=== PATIENT | male | born 1940 | race Caucasian/White ===

== ENCOUNTER 2017-09-06 09:53 | Outpatient (CLI) | payer MEDICARE, OTHER ==
--- NOTE | ~2017-09-06 | OP ---
PATIENT NAME: SUGAR EDOUARD MEDICAL RECORD: [id number] :38 LOCATION:D.CAT ADMISSION DATE: SURGEON: BETH MAI MD DATE OF OPERATION: 09/06/2017 PROCEDURES: 1. PTCA stent to LAD. 2. Intravascular ultrasound of the LAD. 3. Left heart catheterization. 4. Selective coronary angiography. 5. Left ventriculogram. 6. DC cardioversion. INDICATION: Angina, coronary artery disease, atrial fibrillation. DESCRIPTION OF PROCEDURE: After informed consent was obtained and after detailed explanation of risks, benefits as well as alternative therapies, the patient elected to proceed with angiogram and angioplasty. The right radial area was prepped and draped in normal sterile fashion. The right radial artery was cannulated via modified Seldinger technique with placement of a 6-Latvian sheath. All catheters exchanged through this sheath. FINDINGS: Left ventriculogram was performed in standard 30-degree FERRERA view, reveals global hypokinesis throughout all segments. Overall ejection fraction in the 30% range. SELECTIVE CORONARY ANGIOGRAPHY: 1. Left main has no significant angiographic disease. 2. Left anterior descending has greater than 70% stenosis throughout the entire proximal vessel confirmed by intravascular ultrasound. 3. Left circumflex has moderate irregularities, but no flow-limiting stenosis. Previously placed stent is widely patent with no significant restenosis. No disease elsewise throughout the left circumflex or its branches. 4. The right coronary artery has at least 70% stenosis throughout the mid vessel. PTCA STENT OF THE LAD: The stent used is a 3.0 x 30 mm Integrity. Result was 0% residual stenosis. OVERALL IMPRESSION: Successful percutaneous transluminal coronary angioplasty stent of the left anterior descending going from greater than 75% initial stenosis to 0% residual. PLAN: PTCA stent of the RCA in the near future. IV conscious sedation was performed per anesthesia, he received 1 shock at 275 joules restoring sinus rhythm. OVERALL IMPRESSION: Successful DC cardioversion from atrial fibrillation to sinus rhythm. TRANSINT:[id number] Voice Confirmation ID: [id number] DOCUMENT ID: [id number] OPERATIVE REPORT [id number] SUGAR EDOUARD BETH WONG MD at 1153 CC: [id number] DICTATION DATE: 09/06/17 1246 AUTOMOBILE UPHOLSTERER APPRENTICE: 09/06/17 1258 DEP CLI 09/06/17 [place] [id number] [place] [address]
--- NOTE | ~2017-09-06 | HEMODYNAMI ---
PATIENT:SUGAR EDOUARD MEDICAL RECORD: [id number] : 38 LOCATION:[facility]IZETH ADMISSION DATE: 09/06/17 Generatedon:09/06/201712:42 Patient name: SUGAR EDOUARD Patient #: [id number] SSN: D OB: 1940 Date of study: 09/06/2017 Page: Of Hemodynamic Procedure Report Patient Data Patient Demographics Procedure consent was obtained First Name: SUGAR Gender: Male Last Name: SILKE : 1940 Middle Initial: E Age: 77 year(s) Patient #: [id number] Race: Additional ID: [id number] Contact details Address: [address] [place] [address] State: [place] City: [place] Zip code: [address] Past Medical History Allergies: No known allergies Admission Admission Data Admission Date: 09/06/2017 Admission Time: 9:53 Procedure Procedure Types Cath Procedure Diagnostic Procedure LHC LHC w/Coronaries FFR/IVUS Intra-Coronary IVUS Initial Cardioversion PCI Procedure Coronary Stent Coronary Stent Initial Procedure Description Procedure Date Procedure Date: 09/06/2017 Procedure Start Time: 12:22 Procedure End Time: 12:40 Procedure Staff Name Function Saurabh Pa MD Performing Physician Jenelle Parkinson RT Monitor Shannan Paniagua RT Scrub Colleen Osborn RN Nurse Kelton Bautista MD Additional personnel Procedure Data Cath Procedure Fluoroscopy Diagnostic fluoroscopy Total fluoroscopy Time: 2.9 time: 2.9 min min Diagnostic fluoroscopy Total fluoroscopy dose: 838 dose: 838 mGy mGy Contrast Material Contrast Material Type Amount (ml) Isovue 300 70 Entry Location Entry Primary Successful Side Size Upsize Upsize Entry Closure Mahmood ccessful Closure Location (Fr) 1 (Fr) 2 (Fr) Remarks Device Remarks Radial Right 6 Fr Mechanical artery Short Compression Estimated blood loss: 10 ml Diagnostic catheters Device Type Used For End Catheter Placement DIAGNOSTIC [place] 110cm 5 LV Angiography Fr catheter ([id number]) DIAGNOSTIC [place] 110cm 5 Left Coronary Fr catheter ([id number]) Angiography DIAGNOSTIC [place] 110cm 5 Right Coronary Fr catheter ([id number]) Angiography Procedure Complications No complications Procedure Medications Medication Administration Route Dosage Oxygen NC 2 l/min Lidocaine 2% added to field 20 Heparin Flush Bag added to field 2 bags (1000units/500ml NS) 0.9% NaCl I.V. 100 ml/hr Versed I.V. 1 mg Fentanyl I.V. 50 mcg Heparin Bolus I.V. 4000 units Integrilin (Bolus I.V. 8.5 ml 2mg/ml) Versed I.V. 1 mg Fentanyl I.V. 50 mcg Plavix P.O. 600 mg Hemodynamics Rest Heart Rate: 53 (bpm) Snapshots Pre Cath Intra NCS Post Cath Vital Signs Time Heart Resp SPO2 etCO2 NIBP (mmHg) Rhythm Pain Sedation Rate (ipm) (%) (mmHg) Status Level (bpm) 12:14:42 54 18 97 0 164/105(154) A-Flutter 0 (11) 10(A) , No pain 12:19:49 70 16 98 27.5 167/97(128) A-Flutter 0 (11) 10(A) , No pain 12:24:14 63 18 96 20 151/94(127) A-Flutter 0 (11) 9(A) , No pain 12:28:32 62 17 94 8.1 106/67(99) A-Flutter 0 (11) 9(A) , No pain 12:32:29 48 20 92 36.4 110/78(102) SB 0 (11) 9(A) , No pain 12:36:39 47 16 94 8.1 107/66(83) SB 0 (11) 9(A) , No pain 12:40:47 54 17 94 0 102/66(80) SB 0 (11) 10(A) , No pain Medications Time Medication Route Dose Verified Delivered Reason Notes Effectiveness by by 12:18:07 Oxygen NC 2 Saurabh Macias used for l/min Thierno Osborn RN procedure 12:18:14 Lidocaine 2% added 20ml Saurabh Wiley for local to vial Thierno Pa MD anesthetic field 12:18:19 Heparin Flush added 2 Saurabh Wiley used for Bag to bags Thierno Pa MD procedure (1000units/500ml field NS) 12:18:27 0.9% NaCl I.V. 100 Saurabh Macias Per physician ml/hr Thierno Osborn RN 12:22:51 Versed I.V. 1 mg Saurabh Macias for sedation Thierno Osborn RN 12:22:56 Fentanyl I.V. 50 Saurabh Macias for sedation mcg Thierno Osborn RN 12:26:02 Fentanyl I.V. 50 Saurabh Macias for sedation mcg Thierno Osborn RN 12:26:59 Versed I.V. 1 mg Saurabh Macias for sedation Thierno Osborn RN 12:29:22 Heparin Bolus I.V. 4000 Saurabh Macias for verifi ed units Thierno Osborn RN anticoagulation with dr pa 12:33:18 Integrilin I.V. 8.5 Saurabh Macias for wasted (Bolus 2mg/ml) ml Thierno Osborn RN anticoagulation 1.5 ml of vial 12:41:55 Plavix P.O. 600 Saurabh Macias for mg Thierno Osborn RN antiplatelet therapy Procedure Log Time Note 11:56:26 Colleen Osborn RN sent for patient. Start room use. 11:56:26 Time tracking: Regular hours 11:56:30 Plan of Care:Hemodynamics will remain stable., Cardiac rhythm will remain stable., Comfort level will be maintained., Respiratory function will remain adequate., Patient/ family verbilizes understanding of procedure., Procedure tolerated without complication., Recovers from procedure without complications.. 11:58:03 Quick combo pads placed on patients chest and back. 12:06:33 Patient received from Pre/Post Procedure Room to CCL 2 Alert and oriented. Tansferred to table in Supine position. 12:06:34 Warm blankets applied, and eduardo hugger turned on for patient comfort. 12:06:35 Correct patient and procedure confirmed by team. 12:06:37 Signed procedure consent form obtained from patient. 12:06:45 ECG and BP/O2 sat monitors applied to patient. 12:06:46 Full Disclosure recording started 12:13:36 Vital chart was started 12:17:27 Baseline sample Acquired. 12:17:31 Rhythm: atrial flutter 12:17:41 H&P Date Dictated: 08/31/2017 Within 30 days and on chart., H&P Addendum completed by physician on day of procedure. (MUST COMPLETE FOR ALL OUTPATIENTS). 12:17:42 Pre-procedure instructions explained to patient. 12:17:43 Pre-op teaching completed and patient verbalized understanding. 12:17:44 Family in waiting room. 12:17:46 Patient NPO since Midnight. 12:17:52 Patient allergic to No known allergies 12:17:54 Is the patient allergic to Iodine/contrast media? No. 12:18:00 Is patient on blood thinner?Yes 12:18:07 Oxygen 2 l/min NC was administered by Colleen Osborn RN; used for procedure; 12:18:14 Lidocaine 2% 20ml vial added to field was administered by Saurabh Pa MD; for local anesthetic; 12:18:16 Eliquis last dose 09-05-17 AM 12:18:19 Heparin Flush Bag (1000units/500ml NS) 2 bags added to field was administered by Saurabh Pa MD; used for procedure; 12:18:19 Patient diabetic? No. 12:18:23 Previous problem with sedation/anesthesia? No ? 12:18:24 Snore? Yes 12:18:27 0.9% NaCl 100 ml/hr I.V. was administered by Colleen Osborn RN; Per physician; 12:18:29 Sleep apnea? Yes 12:18:30 Deviated septum? No 12:18:31 Opens mouth fully? Yes 12:18:31 Sticks out tongue? Yes 12:18:35 Airway obstruction? Yes COPD 12:18:38 Dentures? No ? 12:18:41 Pre procedure: right dorsailis pedis pulse 2+ Normal; easily identifiable; not easily obliterated 12:18:43 Modified [facility] test Ulnar < 7 seconds 12:18:44 Patient pain scale 0/10 ?. 12:18:49 IV patent on arrival in left hand with 0.9% NaCl at [facility]. 12:18:54 Lab results completed and on chart. 12:18:58 Right Radial area was prepped with chlora-prep and draped in sterile fashion 12:18:59 Alarms reviewed by R. N. 12:18:59 Sharps counted by scrub and verified by R.N. 12:19:02 Final Timeout: patient, procedure, and site verified with staff and physician. All members of the team are in agreement. 12:19:05 Right Radial site verified by team. 12:19:07 Physical assessment completed. ASA score P 2 - A patient with mild systemic disease as per Saurabh Pa MD. 12:19:10 Sedation plan: IV Moderate Sedation Medication:Versed, Fentanyl 12:19:59 Quick Combo opened to sterile field. 12:21:50 Use device set Radial Dx or PCI 12:21:56 ACIST Syringe (77419) opened to sterile field. 12:21:56 Medline Cath Pack ([id number]) opened to sterile field. 12:21:57 Bag Decanter (2002S) opened to sterile field. 12:21:57 SHEATH 6FR Slender ([id number]) opened to sterile field. 12:21:58 DIAGNOSTIC WIRE .035 260cm J wire (539507) opened to sterile field. 12:21:59 ACIST Hand Control (85457) opened to sterile field. 12:21:59 ACIST Manifold (53417) opened to sterile field. 12:22:00 Tegaderm 4 x 4 (1626W) opened to sterile field. 12:22:01 MBrace Wrist Support ([id number]) opened to sterile field. 12:22:07 Procedure started. 12:22:11 Zero performed for pressure channel P1 12:22:43 Local anesthetic to right radial artery with Lidocaine 2% by Saurabh Pa MD.INITIAL ACCESS ONLY 12:22:51 Versed 1 mg I.V. was administered by Colleen Osborn RN; for sedation; 12::56 Fentanyl 50 mcg I.V. was administered by Colleen Osborn RN; for sedation; 12:23:22 A 6 Fr Short sheath was inserted into the Right Radial artery 12::58 A DIAGNOSTIC [place] 110cm 5 Fr catheter (367669) was advanced over the wire and used for LV Angiography. 12:24:59 LV gram done using FERRERA 12:25:20 Injector settings: Ml/sec: 5, Volume: 15, 12:25:32 EF : 30 % 12:25:41 A DIAGNOSTIC [place] 110cm 5 Fr catheter ([id number]) was advanced over the wire and used for Left Coronary Angiography. 12:26:02 Fentanyl 50 mcg I.V. was administered by Colleen Osborn RN; for sedation; 12::59 Versed 1 mg I.V. was administered by Colleen Osborn RN; for sedation; 12:27:16 A DIAGNOSTIC [place] 110cm 5 Fr catheter (224419) was advanced over the wire and used for Right Coronary Angiography. 12::17 Catheter removed. 12:: Proceding to Cardioversion 12::36 Kelton Bautista MD present and monitoring patient for TIVA. 12::44 Sedation plan: TIVA Medication:Propofol 12::20 Use device set THIERNO PCI 12::34 INFLATOR Merit BasixCompak (GN9966) opened to sterile field. 12::18 Defibrillator synced and charged to 275 Joules. 12::20 Shock delivered. 12:: Heparin Bolus 4000 units I.V. was administered by Colleen Osborn RN; for anticoagulation; verified with dr pa 12:: Patient cardioverted to sinus bradycardia. 12::41 Proceding with IVUS 12:30:07 6 Fr XBLAD 3.5 guide catheter was inserted over the wire 12:30:10 GUIDE 6FR XBLAD 3.5 catheter ([id number]) opened to sterile field. 12:30:32 CHOICE PT Extra Support 182cm wire ([id number]) opened to sterile field. 12:31:01 CHOICE PT ES wire advanced. 12:31:09 IVUS catheter advanced over wire. 12:31:15 IVUS pass to LAD lesion performed. 12:32:34 IVUS catheter removed over wire. 12:33:18 Integrilin (Bolus 2mg/ml) 8.5 ml I.V. was administered by Colleen Osborn RN; for anticoagulation; wasted 1.5 ml of vial 12:33:56 Inflation Number: 1 A INTEGRITY RX 3.0 x 30 stent ([id number]) was prepped and advanced across the Mid LAD. The stent was deployed at 17 VICTOR M for 0:04 (min:sec). 12:34:12 Stent catheter was removed intact over wire. 12:34:13 Wire removed. 12:34:17 Guide catheter removed. 12:34:26 Sheath removed intact; hemostasis achieved with Mechanical Compression to the Right Radial artery. 12::28 Procedure ended.(Physican Out) :34:36 Fluoroscopy time 02.90 minutes. 12:35:33 Fluoroscopy dose: 838 mGy 12:35:33 Flurop Dose total: 838 12:35:37 Contrast amount:Isovue 300 70ml. 12:35:38 Sharps counted by scrub and verified by R.N. 12:35:40 TR band inflated with 10cc of air. 12:35:41 Insertion/operative site no bleeding no hematoma. 12:35:50 Post right radial artery:stable, clean and dry 12:35:51 Post Procedure Pulses reassessed and unchanged 12:35:53 Post-procedure physical assessment completed. ASA score P 2 - A patient with mild systemic disease as per Saurabh aP MD. 12:35:55 Post procedure rhythm: unchanged. 12:35:58 Estimated blood loss: 10 ml 12:35:59 Post procedure instruction explained to patient.Patient verbalizes understanding. 12:35:59 Patient needs reinforcement of post procedure teaching. 12:36:13 Procedure type changed to Cath procedure, Diagnostic procedure, LHC, LHC w/Coronaries, FFR/IVUS, Intra-Coronary IVUS Initial, Cardioversion, PCI procedure, Coronary Stent, Coronary Stent Initial 12:36:44 Procedure Complication : No complications 12:36:46 See physician's report for complete and final results. 12:36:56 TR BAND Standard ([id number]) opened to sterile field. 12:39:46 [place] Kake Eagleye IVUS Catheter (73584F) opened to sterile field. 12:40:10 Procedure and supply charges have been captured, reviewed, submitted and are correct. 12:40:11 Vital chart was stopped 12:40:24 Report given to Pre/Post Procedure Room. 12:40:28 Patient transfered to Pre/Post Procedure Room with Stretcher. 12:40:39 Procedure ended. 12:40:39 Full Disclosure recording stopped 12:40:42 End room use (Document Last) 12:41:55 Plavix 600 mg P.O. was administered by Colleen Osborn RN; for antiplatelet therapy; Intervention Summary Intervention Notes Time ActionType Lesion and Equipment Action# Pressure Duration Attributes Used 12:33:56 Place stent Mid LAD INTEGRITY RX 1 17 00:04 3.0 x 30 stent ([id number]) Device Usage Item Name Manufacture Quantity Catalog Number Hospital Part Current Mini mal Lot# / Charge Number Stock Stock Serial# Code Quick Lantern Pharmao [facility] Systems 1 [id number] 018795 254805 901043 5 ACIST Acist 1 80942 554922 654305 350073 20 Syringe Medical (99093) Systems Inc Medline Cath Cardinal 1 [id number] 287325 48013 297328 5 Pack Health ([id number]) Bag Decanter Microtek 1 2001S 679936 49169 355602 5 (2001S) Medical Inc. SHEATH 6FR Terumo 1 [id number] 457766 401271 201823 40 Slender ([id number]) DIAGNOSTIC St Jian 1 419590 748730 854306 136916 30 WIRE .035 260cm J wire (625387) ACIST Hand Acist 1 13269 015051 392186 861088 5 Control Medical (40934) Systems Inc ACIST Acist 1 39188 026385 205127 203431 5 Manifold Medical (54647) Systems Inc Tegaderm 4 x 3M 1 1626W 733977 814399 188240 5 4 (1626W) MBrace Wrist Advanced 1 140-0250-00 241565 79102 616868 5 Support Vascular ([id number]) Dynamics DIAGNOSTIC Terumo 1 40-5013 337844 099162 924367 5 [place] 110cm 5 Fr catheter (991213) INFLATOR Wedge Buster 1 [id number] 837640 000052 237842 15 Wedge Buster Medical BasixCompak (HK1416) GUIDE 6FR Cardinal 1 [id number] 853579 439191 351030 10 XBLAD 3.5 Health catheter (55967693) CHOICE PT [facility] 1 [id number] 241298 844704 567133 5 Extra Scientific Support 182cm wire ([id number]) INTEGRITY RX Medtronic 1 [id number] 684286 572585 280860 5 [id number] 3.0 x 30 stent ([id number]) TR BAND Terumo 1 [id number] 787928 993744 228062 40 Standard ([id number]) [place] 1 [id number] 600839 941805 448675 8 Kake Eagleye IVUS Catheter (71368D) Signature Audit [place] Stage Time Signature Unsigned Intra-Procedure 09/06/2017 Jenelle 12:42:17 PM Counts RT(R) Signatures Monitor : Jenelle Signature : Counts RT Date : Time : [address] [place] [address]
[~2017-09-06 09:53] MED LIST: BYSTOLIC5 MG PO; COREG25 MG PO; ELIQUIS5 MG PO; LIPITOR40 MG PO; LISINOPRIL5 MG PO; PACERONE200 MG PO; PLAVIX75 MG PO; ZESTRIL20 MG PO
[2017-09-06] MEDS ORDERED: CARDURA4 MG PO (10:10)
[2017-09-06] MEDS ORDERED: HYDROCHLOROTH12.5 M1 PO (10:11)
[2017-09-06] MEDS ORDERED: TOPROL XL100 MG PO (10:12)
[2017-09-06 10:23] VITALS: BP 145/80; BMI 30.1
[2017-09-06 10:34] LABS: HEMATOCRIT 43.8 % (42.0-54.0); HEMOGLOBIN 15.1 g/dL (13.5-17.5); MCH 33.9 pg (26.0-34.0); MCHC 34.5 g/dL (31.0-37.0); MCV 98.4 fL (80.0-100.0); MEAN PLATELET VOLUME 10.6 fL (7.4-10.4); NEUTROPHILS 63.9 % (40-80); PLATELET COUNT 157 10x3/uL (130-400); RBC 4.45 10x6/uL (4.20-6.10); RDW 12.6 % (11.5-14.5); WBC 6.8 10x3/uL (4.8-10.8)
[2017-09-06 10:39] LABS: ANION GAP 10.2 mmol/L (8-16); CARBON DIOXIDE 30.5 mmol/L (21.0-32.0); CREATININE - SERUM 1.2 mg/dL (0.6-1.3); INR 1.43 (0.85-1.17); POTASSIUM - SERUM 3.7 mmol/L (3.5-5.1)
[2017-09-06] MEDS ORDERED: PLAVIX75 MG PO (12:55)
== END 2017-09-06 17:00 | disposition home or self-care (01) ==
LOC: D.CATH 09:53
PROVIDERS: Internal Medicine Interventional Cardiology
DX: I25.119 Atherosclerotic heart disease of native coronary artery with unspecified angina pectoris (principal); I48.91 Unspecified atrial fibrillation; I34.0 Nonrheumatic mitral (valve) insufficiency; I10 Essential (primary) hypertension; E78.5 Hyperlipidemia, unspecified; Z01.812 Encounter for preprocedural laboratory examination

== ENCOUNTER 2017-09-12 08:05 | Outpatient (CLI) | payer MEDICARE, OTHER ==
--- NOTE | ~2017-09-12 | OP ---
PATIENT NAME: SUGAR EDOUARD MEDICAL RECORD: [id number] :38 LOCATION:D.CAT ADMISSION DATE: SURGEON: BETH MAI MD DATE OF OPERATION: 09/12/2017 PROCEDURES: 1. PTCA stent RCA. 2. Intravascular ultrasound. 3. Selective coronary angiography. INDICATION: Angina and coronary artery disease. PROCEDURE IN DETAIL: After informed consent was obtained and after detailed explanation of risks, benefits as well as alternative therapies, the patient elected to proceed with angiogram and angioplasty. The right radial area was prepped and draped in normal sterile fashion. The right radial artery was cannulated via modified Seldinger technique with placement of 6-Estonian sheath. All catheters exchanged through this sheath. FINDINGS: The right coronary artery has greater than 80% stenosis proximally confirmed by intravascular ultrasound. This was addressed with a 3.0 x 26 mm Integrity. Result was 0% residual stenosis. OVERALL IMPRESSION: Successful percutaneous transluminal coronary angioplasty stent of the right coronary artery going from greater than 80% initial stenosis to 0% residual stenosis. TRANSINT:[id number] Voice Confirmation ID: [id number] DOCUMENT ID: [id number] BETH MAI MD at 1153 CC: [id number] DICTATION DATE: 09/12/17 1046 STENOTYPE MACHINE OPERATOR: 09/12/17 1155 [facility] CLI 09/12/[address] [address]
--- NOTE | ~2017-09-12 | HEMODYNAMI ---
PATIENT:SUGAR EDOUARD MEDICAL RECORD: [id number] : 38 LOCATION:[facility] ADMISSION DATE: 09/12/17 Generatedon:09/12/201710:49 Patient name: SUGAR EDOUARD Patient #: [id number] SSN: [id number] OB: 1940 Date of study: 09/12/2017 Page: Of Hemodynamic Procedure Report Patient Data Patient Demographics Procedure consent was obtained First Name: SUGAR Gender: Male Last Name: SILKE : 1940 Middle Initial: E Age: 77 year(s) Patient #: [id number] Race: Additional ID: [id number] Contact details Address: [address] [place] [address] State: [place] City: [place] Zip code: [address] Past Medical History Allergies: No known allergies Admission Admission Data Admission Date: 09/12/2017 Admission Time: 8:05 Lab Results Lab Result Date: 09/12/2017 Lab Result Time: 0:00 Biochemistry Name Units Result Min Max BUN mg/dl 22 --(----)-* 7 18 Creatinine mg/dl 1.2 --(---*)-- 0.6 1.3 CBC Name Units Result Min Max Hemoglobin g/dl 13.6 --(*---)-- 13.5 17.5 Procedure Procedure Types Cath Procedure Diagnostic Procedure FFR/IVUS Intra-Coronary IVUS Initial Sedation Charges Moderate Sedation up to 15 minutes PCI Procedure Coronary Stent Coronary Stent Initial Procedure Description Procedure Date Procedure Date: 09/12/2017 Procedure Start Time: 10:33 Procedure End Time: 10:49 Procedure Staff Name Function Saurabh Pa MD Performing Physician Kelsey Noel RT Monitor Abbe Eduardo RT Scrub Colleen Osborn RN Nurse Procedure Data Cath Procedure Fluoroscopy Diagnostic fluoroscopy Total fluoroscopy Time: 3.2 time: 3.2 min min Diagnostic fluoroscopy Total fluoroscopy dose: 398 dose: 398 mGy mGy Contrast Material Contrast Material Type Amount (ml) Isovue 300 46 Entry Location Entry Primary Successful Side Size Upsize Upsize Entry Closure Mahmood ccessful Closure Location (Fr) 1 (Fr) 2 (Fr) Remarks Device Remarks Radial Right 6 Fr Mechanical artery Short Compression Estimated blood loss: 11 ml Procedure Complications No complications Procedure Medications Medication Administration Route Dosage Oxygen NC 2 l/min Lidocaine 2% added to field 20 Heparin Flush Bag added to field 2 bags (1000units/500ml NS) 0.9% NaCl I.V. 100 ml/hr Versed I.V. 1 mg Fentanyl I.V. 50 mcg Heparin Bolus I.V. 4000 units Versed I.V. 1 mg Fentanyl I.V. 50 mcg Radial Cocktail I.A. 1 syringe (Verapomil 2mg/Nitro 400mcg/Heparin 1500units) Hemodynamics Rest HGB: 13.6 (g/dl) Heart Rate: 41 (bpm) Snapshots Pre Cath Intra NCS Post Cath Vital Signs Time Heart Resp SPO2 etCO2 NIBP (mmHg) Rhythm Pain Sedation Rate (ipm) (%) (mmHg) Status Level (bpm) 10:26:37 41 22 93 39.8 146/78(122) NSR 0 (11) 10(A) , No pain 10:31:26 42 18 95 11.2 123/68(87) NSR 0 (11) 10(A) , No pain 10:36:08 41 19 94 18.7 107/59(82) NSR 0 (11) 9(A) , No pain 10:40:47 40 17 93 11.2 114/59(85) NSR 0 (11) 9(A) , No pain 10:46:09 38 18 96 16.5 128/65(93) NSR 0 (11) 10(A) , No pain Medications Time Medication Route Dose Verified Delivered Reason Note s Effectiveness by by 10:25:03 Oxygen NC 2 l/min Saurabh Macias used for Thierno Osborn RN procedure 10:25:10 Lidocaine 2% added 20ml Saurabh Wiley for local to vial Thierno Pa MD anesthetic field 10:25:16 Heparin Flush added 2 bags Saurabh Wiley used for Bag to Thierno Pa MD procedure (1000units/500ml field NS) 10:25:26 0.9% NaCl I.V. 100 Saurabhlance Macias Per physician ml/hr Thierno Osborn RN 10:27:44 Versed I.V. 1 mg Saurabh Macias for sedation Thierno Osborn RN 10:27:51 Fentanyl I.V. 50 mcg Saurabh Macias for sedation Thierno Osborn RN 10:34:47 Radial Cocktail I.A. 1 Saurabh briceno (Verapomil syringe Thierno Pa MD vasodilation 2mg/Nitro 400mcg/Heparin 1500units) 10:35:36 Heparin Bolus I.V. 4000 Saurabh Macias for veri fied units Thierno Osborn RN anticoagulation with dr pa 10:40:17 Versed I.V. 1 mg Saurabh Macias for sedation Thierno Osborn RN 10:40:21 Fentanyl I.V. 50 mcg Saurabh Macias for sedation Thierno Osborn RN Procedure Log Time Note 10:05:33 Time tracking: Regular hours 10:05:37 Plan of Care:Hemodynamics will remain stable., Cardiac rhythm will remain stable., Comfort level will be maintained., Respiratory function will remain adequate., Patient/ family verbilizes understanding of procedure., Procedure tolerated without complication., Recovers from procedure without complications.. 10:05:40 Signed procedure consent form obtained from patient. 10:06:46 Patient allergic to No known allergies 10:07:29 Lab Result : BUN 22 mg/dl 10::29 Lab Result : Hemoglobin 13.6 g/dl 10::29 Lab Result : Creatinine 1.2 mg/dl 10:07:38 Colleen Osborn RN sent for patient. Start room use. 10:14:01 Patient received from Pre/Post Procedure Room to CCL 1 Alert and oriented. Tansferred to table in Supine position. 10:14:02 Warm blankets applied, and eduardo hugger turned on for patient comfort. 10:14:02 Correct patient and procedure confirmed by team. 10:14:02 ECG and BP/O2 sat monitors applied to patient. 10:25:03 Oxygen 2 l/min NC was administered by Colleen Osborn RN; used for procedure; 10:25:10 Lidocaine 2% 20ml vial added to field was administered by Saurabh Pa MD; for local anesthetic; 10:25:16 Heparin Flush Bag (1000units/500ml NS) 2 bags added to field was administered by Saurabh Pa MD; used for procedure; 10:25:26 0.9% NaCl 100 ml/hr I.V. was administered by Colleen Osborn RN; Per physician; 10::31 Vital chart was started 10:26:05 Baseline sample Acquired. 10:26:09 Rhythm: sinus bradycardia 10:26:10 Full Disclosure recording started 10:26:16 H&P Date Dictated: 09/12/2017 New H&P dictated by physician.. 10:26:17 Pre-procedure instructions explained to patient. 10:26:17 Pre-op teaching completed and patient verbalized understanding. 10:26:19 Family in patients room. 10:26:21 Patient NPO since Midnight. 10:26:23 Is the patient allergic to Iodine/contrast media? No. 10:26:27 Is patient on blood thinner?Yes 10::29 ACC The patient was administered the following blood thiners within the last 24 hours: ACCPlavix 10::31 Patient diabetic? No. 10:26:35 Previous problem with sedation/anesthesia? No ? 10:26:36 Snore? Yes 10:26:37 Sleep apnea? Yes 10:26:39 Deviated septum? No 10:26:39 Opens mouth fully? Yes 10:26:40 Sticks out tongue? Yes 10:26:43 Dentures? No ? 10:26:47 Airway obstruction? No ? 10:26:50 Modified [facility] test Ulnar < 7 seconds 10:26:51 Patient pain scale 0/10 ?. 10:27:01 IV patent on arrival in left wrist with 0.9% NaCl at [facility]. 10:27:05 Lab results completed and on chart. 10:27:07 Right Radial & Right Groin area was prepped with chlora-prep and draped in sterile fashion 10:27:08 Alarms reviewed by R. N. 10:27:09 Sharps counted by scrub and verified by R.N. 10:27:13 --------ALL STOP TIME OUT------ 10:27:13 Final Timeout: patient, procedure, and site verified with staff and physician. All members of the team are in agreement. 10:27:17 Right Radial & Right Groin site verified by team. 10:27:26 Physical assessment completed. ASA score P 2 - A patient with mild systemic disease as per Saurabh Pa MD. 10:27:29 Sedation plan: IV Moderate Sedation Medication:Versed, Fentanyl 10:27:44 Versed 1 mg I.V. was administered by Colleen Osborn RN; for sedation; 10:27:51 Fentanyl 50 mcg I.V. was administered by Colleen Osborn RN; for sedation; 10:28:15 Use device set CATH PACK 10:28:20 Use device set TAUTH PCI 10:28:21 ACIST Syringe (18725) opened to sterile field. 10:28:22 ACIST Hand Control (89379) opened to sterile field. 10:28:22 ACIST Manifold (45740) opened to sterile field. 10:28:23 Medline Cath Pack ([id number]) opened to sterile field. 10:28:24 Bag Decanter (2002S) opened to sterile field. 10:28:24 DIAGNOSTIC WIRE .035 260cm J wire (991541) opened to sterile field. 10:28:47 INFLATOR Merit BasixCompak (UL0887) opened to sterile field. 10:29:10 SHEATH 6FR Slender ([id number]) opened to sterile field. 10:33:08 Procedure started. 10:33:22 Local anesthetic to right radial artery with Lidocaine 2% by Saurabh Pa MD.INITIAL ACCESS ONLY 10:33:33 A 6 Fr Short sheath was inserted into the Right Radial artery 10:34:04 GUIDE 6FR AR 2.0 SH catheter ([id number]) opened to sterile field. 10:34:24 Zero performed for pressure channel P1 10:34:35 Zero performed for pressure channel P1 10:34:43 Zero performed for pressure channel P1 10:34:47 Radial Cocktail (Verapomil 2mg/Nitro 400mcg/Heparin 1500units) 1 syringe I.A. was administered by Saurabh Pa MD; for vasodilation; 10:34:51 CHOICE PT Extra Support 182cm wire ([id number]) opened to sterile field. 10:34:55 6 Fr AR 2 SH guide catheter was inserted over the wire 10:35:36 Heparin Bolus 4000 units I.V. was administered by Colleen Osborn RN; for anticoagulation; verified with dr pa 10:35:59 CHOICE PT 182 wire advanced. 10:36:06 [place] IVUS Catheter (50989Q) opened to sterile field. 10:37:06 Wire advanced across lesion. 10:37:22 IVUS catheter advanced over wire. 10:37:46 IVUS pass to RCA lesion performed. 10:38:42 IVUS catheter removed over wire. 10:40:17 Versed 1 mg I.V. was administered by Colleen Osborn RN; for sedation; 10:40:21 Fentanyl 50 mcg I.V. was administered by Colleen Osborn RN; for sedation; 10:41:01 Inflation Number: 1 A INTEGRITY RX 3.0 x 26 stent ([id number]) was prepped and advanced across the Prox RCA. The stent was deployed at 17 VICTOR M for 0:10 (min:sec). 10:41:34 Stent catheter was removed intact over wire. 10:41:34 Wire removed. 10:41:35 Guide catheter removed. 10:42:15 TR BAND Standard ([id number]) opened to sterile field. 10:42:24 Sheath removed intact; hemostasis achieved with Mechanical Compression to the Right Radial artery. 10:42:29 Procedure ended.(Physican Out) 10:43:25 Fluoroscopy time 03.20 minutes. 10:43:29 Flurop Dose total: 398 10:43:29 Fluoroscopy dose: 398 mGy 10:43:31 Contrast amount:Isovue 300 46ml. 10:43:33 Sharps counted by scrub and verified by R.N. 10:43:35 TR band inflated with 10cc of air. 10:43:41 Post-procedure physical assessment completed. ASA score P 2 - A patient with mild systemic disease as per Saurabh Pa MD. 10:43:44 Post procedure rhythm: unchanged. 10:43:47 Estimated blood loss: 11 ml 10:43:48 Post procedure instruction explained to patient.Patient verbalizes understanding. 10:43:48 Patient needs reinforcement of post procedure teaching. 10:45:39 Procedure type changed to Cath procedure, Diagnostic procedure, FFR/IVUS, Intra-Coronary IVUS Initial, Sedation Charges, Moderate Sedation up to 15 minutes, PCI procedure, Coronary Stent, Coronary Stent Initial 10:47:30 Procedure and supply charges have been captured, reviewed, submitted and are correct. 10:48:54 Procedure Complication : No complications 10:48:56 Vital chart was stopped 10:48:56 See physician's report for complete and final results. 10:49:00 Patient transfered to Pre/Post Procedure Room with Bed. 10:49:02 Report given to Pre/Post Procedure Room. 10:49:04 Procedure ended. 10:49:04 Full Disclosure recording stopped 10:49:08 End room use (Document Last) Intervention Summary Intervention Notes Time ActionType Lesion and Equipment Action# Pressure Duration Attributes Used 10:41:[address] Place stent Prox RCA INTEGRITY RX 1 17 00:10 3.0 x 26 stent ([id number]) Device Usage Item Name Manufacture Quantity Catalog Number Hospital Part Current Mini mal Lot# / Charge Number Stock Stock Serial# Code ACIST Acist 1 44265 672247 489398 209437 20 Syringe Medical (99451) Systems Inc ACIST Hand Acist 1 29934 677193 319439 865335 5 Control Medical (17993) Systems Inc ACIST Acist 1 47572 363945 362458 378566 5 Manifold Medical (65009) Systems Inc Medline Cath Cardinal 1 [id number] 477164 65849 033020 5 Pack Blyk ([id number]) Bag Decanter Microtek 1 2001S 331105 07296 267920 5 (2001S) Medical Inc. DIAGNOSTIC St Jian 1 752309 839118 208376 906794 30 WIRE .035 260cm J wire (521716) INFLATOR Opower 1 [id number] 323198 051430 893907 15 Opower Medical BasixCompak (ZD7158) SHEATH 6FR Terumo 1 [id number] 029491 438643 448096 40 Slender ([id number]) GUIDE 6FR AR Medtronic 1 [id number] 444207 36015 656081 1 2.0 SH catheter ([id number]) [place] 1 [id number] 389445 902058 127632 8 [place] IVUS Catheter (42617U) INTEGRITY RX Medtronic 1 [id number] 406159 193448 869547 5 [id number] 3.0 x 26 stent ([id number]) TR BAND Terumo 1 [id number] 826939 757433 892628 40 Standard ([id number]) CHOICE PT [place] 1 [id number] 433284 447114 432782 5 Extra Scientific Support 182cm wire ([id number]) Signature Audit [place] Stage Time Signature Unsigned Intra-Procedure 09/12/2017 Kelsey Noel 10:49:26 AM RT(R) Signatures Monitor : Kelsey Noel Signature : RT Date : Time : [place] [address] [place] [address]
[~2017-09-12 08:05] MED LIST changes: +CARDURA4 MG PO; +HYDROCHLOROTH12.5 M1 PO; +TOPROL XL100 MG PO
[2017-09-12] MEDS ORDERED: BAYER CHEWABLE81 MG PO (08:18)
[2017-09-12 08:28] VITALS: BP 146/75; BMI 30.1
[2017-09-12 08:43] LABS: BASOPHILS 0.3 % (0-2); EOSINOPHILS 1.5 % (0-7); HEMATOCRIT 40.7 % (42.0-54.0); HEMOGLOBIN 13.6 g/dL (13.5-17.5); IMMATURE GRANULOCYTES 0.3 % (0-5); LYMPHOCYTES 22.3 % (15-50); MCH 33.7 pg (26.0-34.0); MCHC 33.4 g/dL (31.0-37.0); MEAN PLATELET VOLUME 11.3 fL (7.4-10.4); MONOCYTES 10.2 % (2-11); NEUTROPHILS 65.4 % (40-80); PLATELET COUNT 146 10x3/uL (130-400); RBC 4.03 10x6/uL (4.20-6.10); RDW 12.9 % (11.5-14.5); WBC 6.7 10x3/uL (4.8-10.8)
[2017-09-12 08:59] LABS: CALCIUM 8.1 mg/dL (8.5-10.1); CARBON DIOXIDE 25.8 mmol/L (21.0-32.0); CREATININE - SERUM 1.2 mg/dL (0.6-1.3); POTASSIUM - SERUM 3.8 mmol/L (3.5-5.1)
== END 2017-09-12 14:45 | disposition home or self-care (01) ==
LOC: D.CATH 08:05
PROVIDERS: Internal Medicine Interventional Cardiology
DX: I25.119 Atherosclerotic heart disease of native coronary artery with unspecified angina pectoris (principal); Z01.812 Encounter for preprocedural laboratory examination

== ENCOUNTER 2019-02-15 08:30 | Outpatient (CLI) | payer MEDICARE, OTHER ==
[~2019-02-15] VITALS: Ht 177.8 cm; Wt 95.5 kg
--- NOTE | ~2019-02-15 | HEMODYNAMI ---
PATIENT:SUGAR EDOUARD MEDICAL RECORD: [id number] : 38 LOCATION:[facility] ADMISSION DATE: 02/15/19 Generatedon:02/15/201911:19 Patient name: SUGAR EDOUARD Patient #: [id number] SSN: [id number] : 1940 Date of study: 02/15/2019 Page: Of Hemodynamic Procedure Report Patient Data Patient Demographics Procedure consent was obtained First Name: SUGAR Gender: Male Last Name: SILKE : 1940 [facility] Initial: E Age: 79 year(s) Patient #: [id number] Race: SSN: [id number] Additional ID: [id number] Contact details Address: [address] [place] [address] State: [place] City: [place] Zip code: [address] Past Medical History Performed procedures and imaging results Date Procedure Procedure Results Comments 12-Lead ECG Atrial Flutter Allergies: No known allergies Admission Admission Data Admission Date: 02/15/2019 Admission Time: 8:30 Arrival Date: 02/15/2019 Arrival Time: 0:00 Admit Source: Other Insurance Payor: Medicare [facility] #: [id number] Height (in.): 70 BSA: 2.11 (m2) Height (cm.): 177.8 BMI: 29.56 (kg/m2) Weight (lbs.): 206 Weight (kg.): 93.44 Lab Results Lab Result Date: 02/15/2019 Lab Result Time: 0:00 Biochemistry Name Units Result Min Max BUN mg/dl 33 --(----)-* 7 18 Creatinine mg/dl 1.1 --(--*-)-- 0.6 1.3 CBC Name Units Result Min Max Hematocrit % 48.3 --(--*-)-- 42 54 Hemoglobin g/dl 16.9 --(---*)-- 13.5 17.5 Procedure Procedure Types Cath Procedure Diagnostic Procedure Cardioversion External Procedure Description Procedure Date Procedure Date: 02/15/2019 Procedure Start Time: 11:01 Procedure End Time: 11:18 Procedure Staff Name Function Saurabh Pa MD Performing Physician Earl Hernandez MD Additional personnel Diego Amaya RT Monitor Alanna Yoo RN Nurse Procedure Medications Medication Administration Route Dosage 0.9% NaCl I.V. 100 ml/hr Oxygen etCO2 Nasal cannula 2 l/min Refer to Anesthesia Notes for Sedation Medications Hemodynamics Rest BSA: 2.11 (m2) O2 Consumption: Estimated: 241.72 (ml/min) O2 Consumption indexed : Estimated:114.56 (ml/min/m) Heart Rate: 71 (bpm) Snapshots Pre Cath Intra NCS Post Cath Vital Signs Time Heart Resp SPO2 etCO2 NIBP (mmHg) Rhythm Pain Sedation Rate (ipm) (%) (mmHg) Status Level (bpm) 10:59:10 70 12 100 28.4 Measuring A-Flutter 0 (11) 10(A) , No pain 11:00:13 70 14 100 21.7 159/104(141) A-Flutter 0 (11) 10(A) , No pain 11:04:07 70 13 99 29.9 156/110(132) A-Flutter 0 (11) 10(A) , No pain 11:08:03 43 14 97 13.4 122/74(107) SB 0 (11) 5(A) , No pain 11:12:23 48 13 99 21.7 114/86(99) SB 0 (11) 5(A) , No pain 11:16:12 47 14 99 28.4 110/82(96) SB 0 (11) 10(A) , No pain Medications Time Medication Route Dose Verified Delivered Reason Notes Effective ness by by 10:57:33 0.9% NaCl I.V. 100 Saurabh Mondragon used for ml/hr Thierno Yoo armature bander 10:57:40 Oxygen etCO2 2 Saurabh Mondragon used for Nasal l/min Thierno Yoo procedure cannula RN 10:57:44 Refer to Saurabh Wiley Anesthesia Thierno Pa MD Notes for Sedation Medications Procedure Log Time Note 10:43:42 Informed consent obtained and on chart 10:49:10 Alanna Yoo RN sent for patient. Start room use. 10:49:11 Arrival Date: 02/15/2019 12:00:00 AM 10:49:39 Insurance Payor : Medicare 10:49:45 Patient Height : 70 inches 10:49:49 Patient Weight : 206 lbs 10:50:01 Admit Source: Other 10:54:10 Lab Result : BUN 33 mg/dl 10:54:10 Lab Result : Creatinine 1.1 mg/dl 10:54:10 Lab Result : Hemoglobin 16.9 g/dl 10:54:10 Lab Result : Hematocrit 48.3 % 10:56:58 Time tracking: Regular hours (M-F 7:00 - 5:00) 10:57:04 Plan of Care:Hemodynamics will remain stable., Cardiac rhythm will remain stable., Comfort level will be maintained., Respiratory function will remain adequate., Patient/ family verbilizes understanding of procedure., Procedure tolerated without complication., Recovers from procedure without complications.. 10:57:22 Vital chart was started 10:57:22 Patient received from Pre/Post Procedure Room to [facility] 3 Alert and oriented. Tansferred to table in Supine position. 10:57:25 Warm blankets applied, and eduardo hugger turned on for patient comfort. 10:57:26 Correct patient and procedure confirmed by team. 10:57:27 ECG and BP/O2 sat monitors applied to patient. 10:57:33 0.9% NaCl 100 ml/hr I.V. was administered by Alanna Yoo RN; used for procedure; 10:57:37 Baseline sample Acquired. 10:57:40 Oxygen 2 l/min etCO2 Nasal cannula was administered by Alanna Yoo RN; used for procedure; 10:57:42 Rhythm: atrial flutter 10:57:44 Refer to Anesthesia Notes for Sedation Medications was administered by Saurabh Pa MD; ; 10:57:44 Full Disclosure recording started 10:58:03 H&P Date Dictated: 02/14/2019 Within 30 days and on chart., H&P Addendum completed by physician on day of procedure. (MUST COMPLETE FOR ALL OUTPATIENTS). 10:59:19 IV patent on arrival in left forearm with 0.9% NaCl at [facility]. 10:59:28 ----Pre-sedation anethsthesia assessment.---- 10:59:31 Previous problem with sedation/anesthesia? No ? 10:59:33 Snore? Yes 10:59:35 Sleep apnea? No 10:59:37 Deviated septum? No 10:59:38 Opens mouth fully? Yes 10:59:39 Sticks out tongue? Yes 10:59:44 Airway obstruction? No ? 10:59:48 Dentures? No ? 11:00:00 Alarms reviewed by Julian Soliman 11:00:03 Physician arrived 11:00:04 --------ALL STOP TIME OUT------ 11:00:04 Final Timeout: patient, procedure, and site verified with staff and physician. All members of the team are in agreement. 11:00:59 Fire Safety Assessment: C--Open oxygen or nitrous oxide is being used. 11:01:06 Physical assessment completed. ASA score P 2 - A patient with mild systemic disease as per Saurabh Pa MD. 11:01:12 Sedation plan: TIVA Medication:Propofol 11:01:39 Procedure started. 11:01:51 Quick combo pads placed on patients chest and back. 11:02:07 Defibrillator synced and charged to 275 Joules. 11:07:32 Shock delivered. 11:09:11 Procedure ended.(Physican Out) 11:16:28 Post procedure rhythm: sinus bradycardia 11:16:35 Patient needs reinforcement of post procedure teaching. 11:17:36 Procedure and supply charges have been captured, reviewed, submitted and are correct. 11:18:26 Vital chart was stopped 11:18:28 See physician's report for complete and final results. 11:18:30 Report given to Pre/Post Procedure Room. 11:18:36 Patient transfered to Pre/Post Procedure Room with Stretcher. 11:18:43 Procedure ended. 11:18:43 Full Disclosure recording stopped 11:18:48 End room use (Document Last) Signature Audit [place] Stage Time Signature Unsigned Intra-Procedure 02/15/2019 Diego Amaya 11:19:15 AM RT(R) (CV) Signatures Performing Physician : Signature : Saurabh Pa MD Date : Time : Monitor : Diego Amaya RT Signature : Date : Time : Nurse : Alanna Fredo RN Signature : Date : Time : [place] [id number] [facility] [place] [address]
[~2019-02-15 08:30] MED LIST changes: +BAYER CHEWABLE81 MG PO
[2019-02-15] MEDS ORDERED: XARELTO20 MG PO (08:55)
[2019-02-15] MEDS ORDERED: BETAPACE 80 MG80 MG PO (08:55)
[2019-02-15 09:07] VITALS: Ht 177.8 cm; Wt 95.5 kg
[2019-02-15 09:22] LABS: BASOPHILS 0.4 % (0-2); EOSINOPHILS 1.9 % (0-7); HEMATOCRIT 48.3 % (42.0-54.0); HEMOGLOBIN 16.9 g/dL (13.5-17.5); IMMATURE GRANULOCYTES 0.4 % (0-5); LYMPHOCYTES 30.9 % (15-50); MCH 34.6 pg (26.0-34.0); MCV 98.8 fL (80.0-100.0); MEAN PLATELET VOLUME 12.3 fL (7.4-10.4); MONOCYTES 11.3 % (2-11); NEUTROPHILS 55.1 % (40-80); PLATELET COUNT 154 10x3/uL (130-400); RBC 4.89 10x6/uL (4.20-6.10); RDW 13.4 % (11.5-14.5); WBC 7.8 10x3/uL (4.8-10.8)
[2019-02-15 09:35] LABS: INR 2.53 (0.85-1.17); PROTIME 26.6 SECONDS (11.6-15.0)
[2019-02-15 09:38] LABS: ANION GAP 12.1 mmol/L (8-16); CALCIUM 8.9 mg/dL (8.5-10.1); CARBON DIOXIDE 29.6 mmol/L (21.0-32.0); CREATININE - SERUM 1.1 mg/dL (0.6-1.3); POTASSIUM - SERUM 3.7 mmol/L (3.5-5.1)
--- NOTE | 2019-02-15 11:41 | NUR ---
1128 PT IS ALERT, DENIES ANY C/O CHEST PAIN. SINUS SAMUEL AT 45, BP IS 121/72. SLIGHT REDNESS AT CARDIOVERSION PAD SITES, NO BLISTERS AND SKIN IS INTACT. PT DENIES ANY DISCOMORT AT AREAS. 1135 SANDWICH AND PO FLUIDS SERVED. PT IS ALERT AND DENIES ANY C/O.
[2019-02-15] MEDS ORDERED: BETAPACE AF80 MG PO (11:44)
--- NOTE | 2019-02-15 12:10 | NUR ---
PT IS ALERT, DENIES ANY NEEDS AT THIS TIME. SINUS SAMUEL AT 52.
--- NOTE | 2019-02-15 12:42 | NUR ---
1230 PT ALERT, DENIES ANY C/O CHEST PAIN, SINUS SAMUEL AT 52. AT BEDSIDE. PT HAS TOLERATED SANDWICH WITH NO C/O. 1240 DC INSTRUCTIONS HAVE BEEN REVIEWED WITH PT AND WHO VERBALIZE UNDERSTANDING. PT DENIES ANY C/O. PT ESCORTED TO PRIVATE AUTO VIA WC BY NURSE WITH DRIVING HIM HOME.
--- NOTE | 2019-02-26 12:04 | OP ---
PATIENT NAME: SUGAR EDOUARD MEDICAL RECORD: [id number] :38 LOCATION:D.CAT ADMISSION DATE: SURGEON: BETH MAI MD DATE OF OPERATION: 02/15/2019 PROCEDURE: DC cardioversion. INDICATION: Atrial fibrillation. PROCEDURE IN DETAIL: IV conscious sedation was per anesthesia, all of which remained stable. He received 1 shock at 275 joules restoring sinus rhythm. OVERALL IMPRESSION: Successful DC cardioversion from atrial fibrillation to sinus rhythm. TRANSINT:[id number] Voice Confirmation ID: [id number] DOCUMENT ID: [id number] BETH MAI MD at 1204 CC: [id number] DICTATION DATE: 02/15/19 1205 [employer]HAUST EMISSIONS INSPECTOR: 02/15/19 1238 DEP CLI 02/15/[address] [address]
== END 2019-02-15 12:40 | disposition home or self-care (01) ==
LOC: D.CATH 08:30
PROVIDERS: ATTEND Internal Medicine Interventional Cardiology
DX: I48.91 Unspecified atrial fibrillation (principal); Z01.812 Encounter for preprocedural laboratory examination

== ENCOUNTER 2019-04-06 12:17 | Emergency (ER) | payer MEDICARE, OTHER ==
[~2019-04-06] VITALS: Ht 177.8 cm; Wt 96.4 kg
[~2019-04-06 12:17] MED LIST changes: +BETAPACE 80 MG80 MG PO; +BETAPACE AF80 MG PO; +XARELTO20 MG PO
[2019-04-06 12:21] VITALS: Ht 177.8 cm; Wt 96.4 kg
[2019-04-06] MEDS ORDERED: PREDNISONE20 MG PO (13:35)
[2019-04-06 13:59] VITALS: BP 132/80
== END 2019-04-06 14:00 | disposition home or self-care (01) ==
LOC: D.ER 12:17
DX: M77.9 Enthesopathy, unspecified (principal); X50.0XXA Overexertion from strenuous movement or load, initial encounter; I10 Essential (primary) hypertension

== ENCOUNTER 2019-07-19 10:16 | Outpatient (CLI) | payer MEDICARE, OTHER ==
[~2019-07-19] VITALS: Ht 177.8 cm; Wt 91.8 kg
--- NOTE | ~2019-07-19 | OP ---
PATIENT NAME: SUGAR EDOUARD MEDICAL RECORD: [id number] :38 LOCATION:D.CAT ADMISSION DATE: SURGEON: BETH MAI MD DATE OF OPERATION: 07/19/2019 PROCEDURE: DC cardioversion. INDICATION: Atrial fibrillation. PROCEDURE: He received the IV conscious sedation per anesthesia. Continuous heart rate, O2 saturation, blood pressure monitoring all undertaken, all of which remains stable. He received one shock at 50 joules restoring sinus rhythm. OVERALL IMPRESSION: Successful DC cardioversion from atrial fibrillation to sinus rhythm. TRANSINT:[id number] Voice Confirmation ID: [id number] DOCUMENT ID: [id number] BETH MAI MD CC: [id number] DICTATION DATE: 07/19/19 1305 APPLICATION SUPPORT: 07/19/191931 DEP CLI 07/19/19 [facility] [address] [place] [address]
--- NOTE | ~2019-07-19 | EC ---
PATIENT:SUGAR EDOUARD DATE OF SERVICE: 07/19/19 SEX: M MEDICAL RECORD: [id number] DATE OF : 38 LOCATION:D.CAT AGE OF PATIENT: 79 ADMISSION DATE: 07/19/19 REFERRING PHYSICIAN: INTERPRETING PHYSICIAN: BETH PA MD ECHOCARDIOGRAM REPORT ECHO CHARGES 4 ECHO COMPLETE Date: 07/19/19 CLINICAL DIAGNOSIS: ATRIAL FIB ECHOCARDIOGRAPHIC MEASUREMENTS (adult normal given) AC root (d.<3.7cm) 3.1 cm LV Septum d (<1.2 cm> 1.2 cm Valve Excursion 1.6 cm LV Septum (systole) 1.6 cm Left Atria (s.<4.0cm> 4.2 cm LVPW d(<1.2cm) 1.1 cm RV (d.<2.3cm) 3.0 cm LVPW (sytole) 1.7 cm LV diastole(<5.6CM) 4.9 cm MV E-F(>70mm/sec) cm LV systole 3.5 cm LVOT Diameter 1.7 cm MV exc.(>10mm) 1.7 cm Est.ejection fraction (50-75%) % DOPPLER: LVIT cm/sec A 69.0 cm/sec E 87.0 cm/sec LA cm/sec RVSP 34 mmHg LVOT 91 cm/sec AOP1/2T m/s Asc. Ao 128 cm/sec RVOT 68 cm/sec RA cm/sec PA 100 cm/sec AV Gradient Peak 6.59 mmHg AV Mean 3.83 mmHg AV Area 1.7 cm MV Gradient Peak 6.49 mmHg MV Mean 2.46 mmHg MV Area cm COMMENTS: Senior Network Systems Engineer: Isabella GRIJALVA Senior Reservoir Engineer: 1 Dr. Pa TAPE# PACS Pericardial Effusion N DATE OF SERVICE: Echocardiogram FINDINGS: 1. Left ventricular chamber size is within normal limits. Left ventricular systolic function is normal. Overall ejection fraction estimated at 55%. 2. Left atrium is enlarged at 4.2 cm. Right atrium and right ventricle chamber sizes are within normal limits. 3. Valvular structures have normal structure and motion. ECHOCARDIOGRAM REPORT [id number] SUGAR EDOUARD 4. Doppler interrogation reveals [id number] mitral regurgitation, mild tricuspid regurgitation, no other valvular insufficiency or stenosis. 5. No evidence of pericardial effusion or left ventricular thrombus. 6. Left atrium is visualized. There does not appear to be any significant thrombus burden. TRANSINT:[id number] Voice Confirmation ID: [id number] DOCUMENT ID: [id number] BETH PA MD CC: [id number] DICTATION DATE: 07/19/19 1430 CARTRIDGE BELT PUNCHER: 07/19/192234 DEP CLI 07/19/19 [place] [id number] [place] [id number]
--- NOTE | ~2019-07-19 | HEMODYNAMI ---
PATIENT:SUGAR EDOUARD MEDICAL RECORD: [id number] : 38 LOCATION:[facility] ADMISSION DATE: 07/19/19 Generatedon:07/19/201913:12 Patient name: SUGAR EDOUARD Patient #: [id number] SSN: [id number] : 1940 Date of study: 07/19/2019 Page: Of Hemodynamic Procedure Report Patient Data Patient Demographics Procedure consent was obtained First Name: SUGAR Gender: Male Last Name: SILKE : 1940 [facility] Initial: E Age: 79 year(s) Patient #: [id number] Race: SSN: [id number] Additional ID: [id number] Contact details Address: [address] [place] [address] State: [place] City: [place] Zip code: [address] Past Medical History Allergies: No known allergies Admission Admission Data Admission Date: 07/19/2019 Admission Time: 10:16 Arrival Date: 07/19/2019 Arrival Time: 10:00 Admit Source: Other Insurance Payor: Medicare [facility] #: [id number] Height (in.): 70.08 BSA: 2.1 (m2) Height (cm.): 178 BMI: 29.04 (kg/m2) Weight (lbs.): 202.83 Weight (kg.): 92 Lab Results Lab Result Date: 07/19/2019 Lab Result Time: 0:00 Biochemistry Name Units Result Min Max BUN mg/dl 16 --(---*)-- 7 18 Creatinine mg/dl 1 --(--*-)-- 0.6 1.3 eGFR ml/min 76.33239 *-(----)-- 90 120 NONAFRICAN CBC Name Units Result Min Max Hemoglobin g/dl 12.8 -*(----)-- 13.5 17.5 Procedure Procedure Types Cath Procedure Diagnostic Procedure Cardioversion External Procedure Description Procedure Date Procedure Date: 07/19/2019 Procedure Start Time: 0:00 Procedure Staff Name Function Taryn Urrutia RT Monitor Rudy Camarena CONSERVATION ENGINEER Additional personnel Saurabh Pa MD Performing Physician Shannan Paniagua RT Scrub Alanna Yoo RN Nurse Uri Rutledge CONSERVATION ENGINEER Additional personnel Indication Atrial flutter Procedure Data Cath Procedure Fluoroscopy Diagnostic fluoroscopy Total fluoroscopy Time: 0 time: 0 min min Diagnostic fluoroscopy Total fluoroscopy dose: 0 dose: 0 mGy mGy Contrast Material Contrast Material Type Amount (ml) Isovue 300 0 Estimated blood loss: 0 ml Procedure Complications No complications Procedure Medications Medication Administration Route Dosage 0.9% NaCl I.V. 100 ml/hr Oxygen etCO2 Nasal cannula 2 l/min Refer to Anesthesia Notes for Sedation Medications Hemodynamics Rest BSA: 2.1 (m2) HGB: 12.8 (g/dl) O2 Consumption: Estimated: 257.65 (ml/min) O2 Consumption indexed: Estimated:122.69 (ml/min/m) Heart Rate: 92 (bpm) Snapshots Pre Cath Intra NCS Post Cath Vital Signs Time Heart Resp SPO2 etCO2 NIBP (mmHg) Rhythm Pain Sedation Rate (ipm) (%) (mmHg) Status Level (bpm) 12:20:01 67 12 98 36 Measuring A-Flutter 0 (11) 10(A) , No pain 12:20:09 76 10 97 36 151/112(140) A-Flutter 0 (11) 10(A) , No pain 12:24:25 64 17 100 28.4 170/95(108) A-Flutter 0 (11) 10(A) , No pain 12:28:45 71 23 100 29.1 147/104(128) A-Flutter 0 (11) 10(A) , No pain 12:33:44 63 20 100 26.1 Measuring A-Flutter 0 (11) 10(A) , No pain 12:33:59 63 20 100 27.6 163/91(114) A-Flutter 0 (11) 10(A) , No pain 12:38:19 63 20 100 28.4 168/96(124) A-Flutter 0 (11) 10(A) , No pain 12:42:41 63 14 100 29.9 169/103(119) A-Flutter 0 (11) 10(A) , No pain 12:47:03 62 16 100 30.6 167/104(155) A-Flutter 0 (11) 10(A) , No pain 12:52:02 71 19 100 28.4 Measuring A-Flutter 0 (11) 10(A) , No pain 12:52:12 63 16 100 26.1 177/102(141) A-Flutter 0 (11) 10(A) , No pain 12:56:43 89 6 100 18.6 119/75(82) A-Flutter 0 (11) 5(A) , No pain 13:00:50 61 17 98 8.2 131/78(122) NSR 0 (11) 10(A) , No pain Medications Time Medication Route Dose Verified Delivered Reason Notes Effective ness by by 12:21:38 0.9% NaCl I.V. 100 Saurabh Mondragon used for ml/hr Thierno Yoo plumber assistant 12:21:45 Oxygen etCO2 2 Saurabh Mondragon used for Nasal l/min Thierno Yoo procedure cannula RN 12:21:49 Refer to Saurabh Wiley Anesthesia Thierno Pa MD Notes for Sedation Medications Procedure Log Time Note 12:10:22 Informed consent obtained and on chart 12:11:17 Admit Source: Other 12:11:18 Arrival Date: 07/19/2019 10:00:00 AM 12:11:35 Insurance Payor : Medicare 12:16:07 Patient Height : 70.08 inches 12:16:16 Patient Weight : 202.83 lbs 12:16:26 Diagnostic Cath Status : Elective 12:16:40 Time tracking: Regular hours (M-F 7:00 - 5:00) 12:16:40 Shannan GAMBLE(R) sent for patient. Start room use. 12:16:45 Plan of Care:Hemodynamics will remain stable., Cardiac rhythm will remain stable., Comfort level will be maintained., Respiratory function will remain adequate., Patient/ family verbilizes understanding of procedure., Procedure tolerated without complication., Recovers from procedure without complications.. 12:17:32 Lab Result : eGFR NONAFRICAN 76.54860 ml/min 12:17:32 Lab Result : Hemoglobin 12.8 g/dl 12:17:32 Lab Result : BUN 16 mg/dl 12:17:32 Lab Result : Creatinine 1 mg/dl 12:17:44 Patient received from Pre/Post Procedure Room to CCL 2 Alert and oriented. Tansferred to table in Supine position. 12:17:45 Warm blankets applied, and eduardo hugger turned on for patient comfort. 12:17:48 Correct patient and procedure confirmed by team. 12:17:49 ECG and BP/O2 sat monitors applied to patient. 12:18:11 Vital chart was started 12:18:13 Baseline sample Acquired. 12:18:41 Full Disclosure recording started 12:18:45 H&P Date Dictated: 07/19/2019 Within 30 days and on chart., H&P Addendum completed by physician on day of procedure. (MUST COMPLETE FOR ALL OUTPATIENTS). 12:18:52 Pre-op teaching completed and patient verbalized understanding. 12:18:52 Pre-procedure instructions explained to patient. 12:18:54 Family in waiting room. 12:18:55 Patient NPO since Midnight. 12:18:58 Is the patient allergic to Iodine/contrast media? No. 12:19:00 Was the patient premedicated? No 12:19:16 ACC The patient was administered the following blood thiners within the last 24 hours: Xarelto 12:19:20 Patient diabetic? No. 12:19:23 Previous problem with sedation/anesthesia? No ? 12:19:27 Snore? Yes 12:19:35 Sleep apnea? No 12:19:36 Opens mouth fully? Yes 12:19:36 Deviated septum? No 12:19:38 Sticks out tongue? Yes 12:19:40 Airway obstruction? No ? 12:19:43 Dentures? No ? 12:19:47 Pre procedure: right dorsailis pedis pulse 2+ Normal; easily identifiable; not easily obliterated 12:19:48 Pre procedure: left dorsailis pedis pulse 2+ Normal; easily identifiable; not easily obliterated 12:19:51 Patient pain scale 0/10 ?. 12:20:00 IV patent on arrival in left forearm with 0.9% NaCl at [facility]. 12:20:04 Lab results completed and on chart. 12:20:31 Alarms reviewed by R. N. 12:20:32 Sharps counted by scrub and verified by R.N. 12:21:11 Indication : Atrial flutter 12:21:28 Baseline sample Acquired. 12:21:38 0.9% NaCl 100 ml/hr I.V. was administered by Alanna Yoo RN; used for procedure; Verbal order read back and verified. 12::45 Oxygen 2 l/min etCO2 Nasal cannula was administered by Alanna Yoo RN; used for procedure; Verbal order read back and verified. 12:21:49 Refer to Anesthesia Notes for Sedation Medications was administered by Saurabh Pa MD; ; Verbal order read back and verified. 12::41 Quick combo pads placed on patients chest and back. 12:32:32 Rudy Camarena CRNA present and monitoring patient for TIVA. 12:54:42 Physician arrived 12:54:43 Final Timeout: patient, procedure, and site verified with staff and physician. All members of the team are in agreement. 12::43 --------ALL STOP TIME OUT------ 12:54:48 Fire Safety Assessment: A--An alcohol-based skin anteseptic being used preoperatively., C--Open oxygen or nitrous oxide is being used., D--An ESU, laser, or fiber-optic light is being used. 12:55:03 Sedation plan: IV Moderate Sedation Medication:Versed, Fentanyl 12:58:50 Defibrillator synced and charged to 50 Joules. 12:58:51 Shock delivered. 12:58:54 Patient cardioverted to sinus rhythm . 13:01:44 Procedure ended.(Physican Out) 13:01:46 Fluoroscopy time 00.00 minutes. 13:01:49 Fluoroscopy dose: 0 mGy 13:01:49 Flurop Dose total: 0 13:01:51 Dose Area Product 0 mGy/cm. 13:02:06 Contrast amount:Isovue 300 0ml. 13:02:10 Maximum allowable dose exceeded? No. 13:02:11 Sharps counted by scrub and verified by R.N. 13:02:12 Insertion/operative site no bleeding no hematoma. 13:02:13 Post Procedure Pulses reassessed and unchanged 13:02:16 Post procedure rhythm: sinus rhythm 13:02:18 Estimated blood loss: 0 ml 13:02:23 Patient needs reinforcement of post procedure teaching. 13:02:23 Post procedure instruction explained to patient.Patient verbalizes understanding. 13:02:28 Procedure and supply charges have been captured, reviewed, submitted and are correct. 13:02:32 Procedure Complication : No complications 13:02:42 Vital chart was stopped 13:02:44 Operative report dictated upon procedure completion. 13:02:46 Report given to Pre/Post Procedure Room. 13:02:49 Patient transfered to Pre/Post Procedure Room with Stretcher. 13:02:59 End room use (Document Last) 13:08:08 Full Disclosure recording stopped Signature Audit [place] Stage Time Signature Unsigned Intra-Procedure 07/19/2019 Taryn Urrutia 1:08:45 PM RT(R) Intra-Procedure 07/19/2019 Alanna Yoo 1:09:02 PM RN Intra-Procedure 07/19/2019 Saurabh Pa 1:12:51 PM MD Signatures Monitor : Taryn Urrutia RT Signature : Date : Time : Performing Physician : Signature : Saurabh Pa MD Date : Time : Nurse : Alanna Yoo RN Signature : Date : Time : [place] [id number] [place] [address]
[~2019-07-19 10:16] MED LIST changes: +PREDNISONE20 MG PO
[2019-07-19] MEDS ORDERED: VITAMIN B-121000 MCG PO (11:10)
[2019-07-19 11:17] VITALS: BP 145/98; Ht 177.8 cm; Wt 91.8 kg
[2019-07-19 11:17] LABS: BASOPHILS 0.5 % (0-2); EOSINOPHILS 2.1 % (0-7); HEMATOCRIT 39.7 % (42.0-54.0); HEMOGLOBIN 12.8 g/dL (13.5-17.5); IMMATURE GRANULOCYTES 0.2 % (0-5); LYMPHOCYTES 20.8 % (15-50); MCH 32.8 pg (26.0-34.0); MCHC 32.2 g/dL (31.0-37.0); MCV 101.8 fL (80.0-100.0); MEAN PLATELET VOLUME 10.4 fL (7.4-10.4); MONOCYTES 10.6 % (2-11); NEUTROPHILS 65.8 % (40-80); RDW 13.1 % (11.5-14.5); WBC 6.6 10x3/uL (4.8-10.8)
[2019-07-19 11:18] LABS: PLATELET COUNT 233 10x3/uL (130-400)
[2019-07-19 11:25] LABS: CALC OSMOLALITY 290 mosm/kg (275-300); CALCIUM 8.9 mg/dL (8.5-10.1); CARBON DIOXIDE 31.7 mmol/L (21.0-32.0); CHLORIDE - SERUM 107 mmol/L (98-107); GLUCOSE 114 mg/dL (74-106); POTASSIUM - SERUM 3.7 mmol/L (3.5-5.1); SODIUM 145 mmol/L (136-145); UREA NITROGEN 16 mg/dL (7-18); eGFR NON AFRICAN AMERICAN 76 mL/min (90-120)
[2019-07-19 11:28] LABS: INR 3.65 (0.85-1.17); PROTIME 35.6 SECONDS (11.6-15.0)
--- NOTE | 2019-07-19 13:14 | NUR ---
PT ARRIVED BY STRETCHER. PLACED ON MONITORS. ASSESSMENT COMPLETED. VSS. PT IS V PACED AT A RATE OF 60. FAMILY AT BEDSIDE. DR. MAI ROUNDED AND SPOKE WITH PT'S .
--- NOTE | 2019-07-19 13:30 | NUR ---
PT SITTING UP AND EATING SANDWICH. DENIES NAUSEA. VSS. PT STILL IN V-PACED RHYTHM.
--- NOTE | 2019-07-19 13:54 | NUR ---
PT RESTING COMFORTABLY. VSS. PT STILL IN NSR. HR 65. BP 148/87. NO NEEDS AT THIS TIME.
--- NOTE | 2019-07-19 14:05 | NUR ---
PIV D/C'D WITH CATH TIP INTACT. TOLERATED WELL. PT INSTRUCTED TO GET UP AND DRESSED. FAMILY AT BEDSIDE TO ASSIST.
--- NOTE | 2019-07-19 14:10 | NUR ---
DISCUSSED DISCHARGE INSTRUCTIONS WITH PT AND PT'S FAMILY. THEY VOICED UNDERSTANDING.
--- NOTE | 2019-07-19 14:15 | NUR ---
PT TAKEN OUT TO VEHICLE BY WHEELCHAIR. NO S/S OF DISTRESS NOTED. ALL BELONGINGS AND PAPERWORK IN HAND. STOPPED AT RESTROOM AND VOIDED WITHOUT DIFFICULTY.
== END 2019-07-19 14:15 | disposition home or self-care (01) ==
LOC: D.CATH 10:16
PROVIDERS: ATTEND Internal Medicine Interventional Cardiology
DX: I48.91 Unspecified atrial fibrillation (principal); R94.39 Abnormal result of other cardiovascular function study; E78.5 Hyperlipidemia, unspecified; I10 Essential (primary) hypertension; I25.119 Atherosclerotic heart disease of native coronary artery with unspecified angina pectoris; R06.09 Other forms of dyspnea